=== PATIENT | female | born 1950 | race Caucasian/White ===

== ENCOUNTER 2022-06-26 17:58 | Emergency (ER) | payer MEDICARE, BC ==
[2022-06-26 18:43] LABS: ANION GAP 14.4 meq/L (7-15)
[2022-06-26] MEDS ORDERED: Sodium Chloride 0.9% 1,000 ML IV SCH (18:45)
[2022-06-26] MEDS ORDERED: Sodium Chloride 0.9% 250 ML IV SCH (18:45)
[2022-06-26] MEDS ORDERED: Acetaminophen 325 MG Tab PO PRN (18:52)
[2022-06-26] MEDS ORDERED: Ondansetron 4 MG/2 ML SDV IVPUSH ONE (18:53)
[2022-06-26 18:55] LABS: CORONAVIRUS COVID-19 NAA NEGATIVE (NEGATIVE); RESPIRATORY SYNCYTIAL VIR NAA NEGATIVE (NEGATIVE)
[2022-06-26] MEDS ORDERED: cefTRIAXone 2 GM Vial IVPUSH SCH ×2 (19:30)
== END 2022-06-26 20:50 | disposition home or self-care (01) ==
LOC: LL.ED 17:58
DX: B34.9 Viral infection, unspecified (principal); E86.0 Dehydration; Z20.822 Contact with and (suspected) exposure to COVID-19
CPT/HCPCS: 0241U; 36415; 80053; 81001; 83605; 85025; 87040; 96361; 96374; 99285; A9270; J0696; J2405; J7030

== ENCOUNTER 2022-07-16 14:51 | Emergency (ER) | payer MEDICARE, BC ==
[2022-07-16] MEDS ORDERED: Sodium Chloride 0.9% 1,000 ML IV ONE (15:27)
== END 2022-07-16 16:37 ==
LOC: LL.ED 14:51
DX: R53.81 Other malaise (principal); R53.83 Other fatigue; E87.1 Hypo-osmolality and hyponatremia; R74.02 Elevation of levels of lactic acid dehydrogenase [LDH]; D64.9 Anemia, unspecified; R79.89 Other specified abnormal findings of blood chemistry; Z77.22 Contact with and (suspected) exposure to environmental tobacco smoke (acute) (chronic)
CPT/HCPCS: 36415; 71046; 80053; 83605; 83880; 84484; 85025; 85379; 86140; 87040; 96360; 99284; 99284-25; J7030

== ENCOUNTER 2022-07-28 15:16 | Emergency (ER) | payer MEDICARE, BC ==
[2022-07-28] MEDS ORDERED: Sodium Chloride 0.9% 10 ML Syringe FLUSH PRN (15:36)
[2022-07-28 16:13] LABS: ANION GAP 13.9 meq/L (7-15)
[2022-07-28 17:10] LABS: CORONAVIRUS COVID-19 NAA NEGATIVE (NEGATIVE)
[2022-07-28 17:11] LABS: RESPIRATORY SYNCYTIAL VIR NAA NEGATIVE (NEGATIVE)
== END 2022-07-28 17:35 | disposition home or self-care (01) ==
LOC: LL.ED 15:16
DX: B34.9 Viral infection, unspecified (principal); M19.90 Unspecified osteoarthritis, unspecified site; Z79.899 Other long term (current) drug therapy; Z20.822 Contact with and (suspected) exposure to COVID-19
CPT/HCPCS: 0241U; 36415; 80053; 84484; 85025; 93005; 93010; 99283; 99284

== ENCOUNTER 2023-02-09 17:07 | Observation (INO) | payer MEDICARE, BC ==
[2023-02-09] MEDS ORDERED: Sodium Chloride 0.9% 1,000 ML IV ONE (17:44)
[2023-02-09 17:55] LABS: BASOPHILS ABSOLUTE AUTO 0.03 K/uL (0.00-0.20); BASOPHILS PERCENT AUTO 0.2 % (0.0-2.0); HEMATOCRIT 32.9 % (34.0-46.0); HEMOGLOBIN 10.9 g/dL (11.7-15.5); LYMPHOCYTES ABSOLUTE AUTO 0.46 K/uL (0.50-3.50); LYMPHOCYTES PERCENT AUTO 3.6 % (10.0-50.0); MEAN CORPUSCULAR HEMOGLOBIN 31.2 pg (28.2-33.3); MEAN CORPUSCULAR HGB CONC 33.1 g/dL (31.7-36.0); MEAN CORPUSCULAR VOLUME 94.3 fL (84.0-98.0); MONOCYTES PERCENT AUTO 1.6 % (2.0-14.0); NEUTROPHILS PERCENT AUTO 94.6 % (45.0-80.0); RED BLOOD CELL COUNT 3.49 M/uL (3.77-5.09); RED CELL DISTRIBUTION WIDTH 15.8 % (11.2-14.1); WHITE BLOOD CELL COUNT,WBC 12.9 K/uL (4.0-10.2)
[2023-02-09 17:58] LABS: INR 1.1
[2023-02-09 18:09] LABS: PLATELET COUNT,PLT 100 K/uL (150-350)
[2023-02-09 18:10] LABS: ALBUMIN 3.3 g/dL (3.4-5.0); ALKALINE PHOSPHATASE 161 IU/L (46-116); ASPARTATE AMNIOTRANSFERASE,AST 21 U/L (15-37); BILIRUBIN TOTAL 0.3 mg/dL (0.2-1.0); BLOOD UREA NITROGEN,BUN 15 mg/dL (7-18); CALCIUM 8.8 mg/dL (8.5-10.1); CHLORIDE,CL 103 mmol/L (98-107); CREATININE 0.51 mg/dL (0.51-1.17); ESTIMATED GFR 100 mL/min (>=60); GLUCOSE RANDOM 135 mg/dL (70-99); POTASSIUM,K 3.8 mmol/L (3.5-5.1); PROTEIN TOTAL,TP 6.1 g/dL (6.4-8.2); SODIUM,NA 137 mmol/L (136-145)
[2023-02-09 18:53] LABS: APPEARANCE,URINE CLOUDY; BILIRUBIN,URINE SMALL (NEGATIVE); COLOR,URINE DARK YELLOW; GLUCOSE,URINE NEGATIVE (NEGATIVE); KETONES,URINE NEGATIVE (NEGATIVE); NITRITE,URINE NEGATIVE (NEGATIVE); OCCULT BLOOD,URINE NEGATIVE (NEGATIVE); PROTEIN,URINE 30 mg/dL (NEGATIVE); UROBILINOGEN,URINE 0.2 E.U./dL (0.2-1.0)
[2023-02-09 19:05] LABS: LEUKOCYTE ESTERASE,URINE TRACE (NEGATIVE)
[2023-02-09 19:06] LABS: RBC,URINE 0-5 /HPF
[2023-02-09 19:07] LABS: EPITHELIAL CELLS,URINE FEW /LPF
[2023-02-09] MEDS: Nitrofurantoin Monohydrate/Macrocrystalline 100 MG Cap PO SCH (22:00)
[2023-02-10] MEDS: Nitrofurantoin Monohydrate/Macrocrystalline 100 MG Cap PO SCH ×2 (07:31→18:23)
[2023-02-10 07:36] LABS: BASOPHILS ABSOLUTE AUTO 0.02 K/uL (0.00-0.20); BASOPHILS PERCENT AUTO 0.3 % (0.0-2.0); EOSINOPHILS ABSOLUTE AUTO 0.01 K/uL (0.00-0.50); EOSINOPHILS PERCENT AUTO 0.1 % (0.0-5.0); HEMATOCRIT 31.4 % (34.0-46.0); HEMOGLOBIN 10.4 g/dL (11.7-15.5); LYMPHOCYTES ABSOLUTE AUTO 0.54 K/uL (0.50-3.50); LYMPHOCYTES PERCENT AUTO 7.7 % (10.0-50.0); MEAN CORPUSCULAR HEMOGLOBIN 30.9 pg (28.2-33.3); MEAN CORPUSCULAR HGB CONC 33.1 g/dL (31.7-36.0); MEAN CORPUSCULAR VOLUME 93.2 fL (84.0-98.0); MONOCYTES ABSOLUTE AUTO 0.28 K/uL (0.00-1.00); NEUTROPHILS ABSOLUTE AUTO 6.12 K/uL (1.40-7.00); NEUTROPHILS PERCENT AUTO 87.9 % (45.0-80.0); RED BLOOD CELL COUNT 3.37 M/uL (3.77-5.09); RED CELL DISTRIBUTION WIDTH 15.5 % (11.2-14.1)
[2023-02-10 08:12] LABS: PLATELET COUNT,PLT 80 K/uL (150-350)
[2023-02-10] MEDS ORDERED: Sodium Chloride 0.9% 1,000 ML IV ONE (08:29)
[2023-02-10] MEDS: Sodium Chloride 0.9% 10 ML Syringe FLUSH PRN ×2 (09:27→19:17)
[2023-02-10] MEDS: Ondansetron 4 MG Tab.DIS PO PRN (21:54)
[2023-02-11] MEDS: Nitrofurantoin Monohydrate/Macrocrystalline 100 MG Cap PO SCH ×2 (07:44→18:29)
[2023-02-11] MEDS: Sodium Chloride 0.9% 10 ML Syringe FLUSH PRN ×2 (07:45→19:40)
[2023-02-11] MEDS: Ondansetron 4 MG Tab.DIS PO PRN ×2 (14:25→19:43)
[2023-02-11] MEDS: Acetaminophen 325 MG Tab PO PRN (14:25)
[2023-02-11] MEDS ORDERED: Sodium Chloride 0.9% 1,000 ML IV SCH (17:45)
[2023-02-11] MEDS ORDERED: Pantoprazole 40 MG Vial IVPUSH ONE (20:47)
[2023-02-11] MEDS ORDERED: FLUoxetine 20 MG Cap PO ONE (20:48)
[2023-02-12] MEDS ORDERED: FLUoxetine 20 MG Cap ONE (04:08)
[2023-02-12] MEDS ORDERED: Pantoprazole 40 MG Vial ONE (04:09)
[2023-02-12] MEDS: Acetaminophen 325 MG Tab PO PRN (04:11)
[2023-02-12] MEDS: Nitrofurantoin Monohydrate/Macrocrystalline 100 MG Cap PO SCH (07:31)
[2023-02-12] MEDS: Ondansetron 4 MG Tab.DIS PO PRN (09:02)
== END 2023-02-12 10:41 ==
LOC: LL.ED 17:07 → SUPCPDRO 17:07 → LL.MS 19:20
PROVIDERS: ADMIT Physician Assistant; ATTEND Physician Assistant
DX: E86.0 Dehydration (principal); R53.81 Other malaise; Z78.9 Other specified health status; Z79.899 Other long term (current) drug therapy
CPT/HCPCS: 36415; 71045; 80053; 81001; 83605; 84484; 85025; 85610; 87040; 87086; 93005; 96360; 96361; 96374; 97162-GP; 99223; 99232; 99233; 99238; 99285-25; A9270-GY; C9113; G0378; J1642; J3490; J7030